=== PATIENT | male | born 2000 | race Caucasian/White ===

== ENCOUNTER → 2022-11-16 14:02 | Outpatient (CLI) | payer BC, SELFPAY ==
--- NOTE | 2022-11-16 14:26 | CA_ITS ---
APPROVED REPORT EXAM: Comprehensive 2D, Doppler, and color-flow Echocardiogram Scrubber Operator: Laurie Newby RVT Ht: 6 ft 0 in Wt: 341lbs BSA: 2.67 BP: 151/78 mmHg Indications: CP,ABN EKG,SMOKER,OBESITY 2D Dimensions LVOT 2.41 cm (M/F) 1.5-2.5 LA Volume 37.70 mL LA Volume Index 14.12 mL/m2 (M/F) 16-34 M-Mode Dimensions RVDd 2.68 cm (0.9-2.6) LA Diam 4.10 cm (1.9-4.0) LVDd 3.32 cm (3.5-5.7) Ao Diam 3.27 cm (2.0-3.7) LVDs 2.34 cm (3.5-5.7) IVSd 0.94 cm (0.6-1.1) PWd 0.47 cm (0.6-1.1) EF (Teich) 57.80% FS 29.50% EDV (Teich) 44.80 mL TAPSE 1.84 (<1.7) ESV (Teich) 18.90 mL LV Diastology E Decel Time 237.00 (160-240 msec) E/A Ratio 1.5 MED E' 6.50 (< 7 cm/sec) E'/MED E' Ratio 13.22 (>14) LAT E' 8.00 (<10 cm/sec) E/LAT E' Ratio 10.74 (>14) Aortic Valve AO Peak GR. 4.10 mmHg Mitral Valve MV E Max Cash. 86.00 (40-130 cm/s) MV A Velocity 57.00 (40-130 cm/s) E/A Ratio 1.52 MV Decel. Time 237.00 (160-240 ms) MV PHT 69.00 ms Pulmonary Valve PV Peak Velocity 85.00 (50-150 cm/s) Tricuspid Valve TR P. Velocity 238.00 cm/s RAP Estimate 10.00 mmHg RVSP 32.70 mmHg Left Ventricle Left atrium normal size left ventricle is normal size, estimated ejection fraction 55% with no regional wall motion abnormality, diastolic parameters are within normal range. Right Ventricle Right atrium and right ventricle are normal size and contractility. Aortic Valve Aortic valve is grossly normal there is no aortic stenosis aortic insufficiency. Mitral Valve Mitral valve is grossly normal, there is trace mitral regurgitation. Tricuspid Valve Tricuspid valve grossly normal, there is trace tricuspid regurgitation, tricuspid regurgitation jet velocity is inadequate for calculation of the right ventricular systolic pressure. Pulmonic Valve Pulmonic valve is poorly visualized. Great Vessels Aortic root is normal size. Inferior vena cava is normal size with normal inspiratory collapse. Pericardium No significant pericardial effusion noted. Conclusion 1. Normal left ventricular size, preserved left ventricular systolic function, estimated ejection fraction 55% with no regional wall motion abnormality. Diastolic parameters are within normal range. 2. Trace mitral and tricuspid regurgitation. 3. No significant pericardial effusion noted. 4. Inferior vena cava is normal size with normal inspiratory collapse. Electronically signed by : Farhda Hall MD 11/16/2022 15:21:33
== END ==
PROVIDERS: PCP Family Medicine; Visit Provider Physician Assistant
DX: R07.9 Chest pain, unspecified (principal); R94.31 Abnormal electrocardiogram [ECG] [EKG]
CPT/HCPCS: 93306

== ENCOUNTER 2022-11-23 06:45 | Outpatient (CLI) | payer BC, SELFPAY ==
[2022-11-23 07:07] VITALS: BMI 45.4
[2022-11-23 07:16] VITALS: BP 132/73; PULSE 82; RESP 18; TEMP 36.3; O2SAT 95
[2022-11-23 07:47] VITALS: BP 136/72; PULSE 71; RESP 17; O2SAT 100
[2022-11-23 08:09] LABS: Alanine Aminotransferase 37 U/L (12-78); Albumin Level 4.3 g/dl (3.5-5.0); Albumin/Globulin Ratio 1.6 (1.1-1.8); Alkaline Phosphatase 69 U/L (38-126); Anion Gap 12.5 mEq/L (5-15); Aspartate Amino Transferase 28 U/L (17-59); Bilirubin,Total 0.6 mg/dl (0.2-1.3); Blood Urea Nitrogen 12 mg/dl (9-20); Calcium 8.4 mg/dl (8.4-10.2); Carbon Dioxide 21 mmol/L (22.0-30.0); Chloride 108 mmol/L (98-107); Creatinine Clearance Estimated 127 mL/min (50-200); Estimated Glomerular Filt Rate 93 ml/min (>60); GFR (African American) 113 ML/MIN (>60); Globulin 2.7 g/dL (1.3-3.2); Glucose 91 mg/dl (74-100); Potassium 3.5 mmoL/L (3.5-5.1); Sodium 138 mmol/L (136-145)
[2022-11-23 08:21] VITALS: BP 145/85; PULSE 58; RESP 17; O2SAT 96
[2022-11-23 08:26] VITALS: BP 125/85; PULSE 55; RESP 16; O2SAT 97
[2022-11-23 08:35] VITALS: BP 116/74; PULSE 61; RESP 17; O2SAT 99
[2022-11-23 08:45] VITALS: BP 115/77; PULSE 59; RESP 17; O2SAT 99
== END 2022-11-23 08:50 | disposition home or self-care (01) ==
PROVIDERS: PCP Family Medicine; Visit Provider Physician Assistant
DX: R07.9 Chest pain, unspecified (principal); R94.31 Abnormal electrocardiogram [ECG] [EKG]
CPT/HCPCS: 75574; 80053; Q9967

== ENCOUNTER → 2023-07-15 12:33 | Outpatient (CLI) | payer BC, SELFPAY ==
--- NOTE | 2023-07-15 12:40 | US_ITS ---
FINAL REPORT TECHNIQUE: Limited ultrasound imaging of the neck soft tissues was obtained. CLINICAL HISTORY: posss salivary gland obstruction FINDINGS: The right submandibular and right parotid gland are homogeneous without mass identified. There is no hyperemia. The left submandibular and left parotid gland are homogeneous without mass identified. There is no hyperemia. In the left neck, separate from the salivary gland are small, benign-appearing lymph nodes which are normal in size. IMPRESSION: Unremarkable exam. Reviewed, Interpreted and Dictated by Dalila Russell MD Transcribed by Maegan Bermudez Authenticated and [facility]
== END ==
PROVIDERS: PCP Family Medicine; Visit Provider Nurse Practitioner
DX: K11.8 Other diseases of salivary glands (principal)
CPT/HCPCS: 76536

== ENCOUNTER 2024-05-05 08:07 | Outpatient (POV) | payer BC, SELFPAY | END 2024-05-05 23:59 | disposition home or self-care (01) | LOC: SC 08:07 | PROVIDERS: Visit Provider Specialist/Technologist | DX: Z00.00 Encounter for general adult medical examination without abnormal findings (principal) ==

== ENCOUNTER 2025-08-16 13:30 | Outpatient (CLI) | payer BC, SELFPAY ==
[2025-08-16 14:30] LABS: Hematocrit 45.6 % (42.0-52.0); Hemoglobin 15.4 g/dL (14.1-18.0); Immature Granulocytes % 0.2 %; Mean Corpuscular HGB Conc 33.8 g/dL (31.8-35.4); Mean Corpuscular Hemoglobin 29.9 pg (27.0-31.2); Mean Corpuscular Volume 88.5 fl (80-94); Nucleated Red Blood Cells % 0 %; Platelet Count 336 K/mm3 (142-424); Red Blood Count 5.15 M/mm3 (4.60-6.20); Red Cell Distribution Width-SD 42.1 fL; White Blood Count 8.6 K/mm3 (4.8-10.8)
[2025-08-16 14:52] LABS: Alanine Aminotransferase 54 U/L (12-78); Albumin Level 4.5 g/dl (3.5-5.0); Alkaline Phosphatase 61 U/L (38-126); Anion Gap 17.3 mEq/L (5-15); Aspartate Amino Transferase 34 U/L (17-59); Bilirubin,Direct 0.2 mg/dl (0.0-0.4); Bilirubin,Indirect 0.3 mg/dL (0.0-0.9); Bilirubin,Total 0.5 mg/dl (0.2-1.3); Bilirubin,Unconjugated 0.3 mg/dL (0.0-1.1); Blood Urea Nitrogen 8 mg/dl (9-20); Calcium 9.6 mg/dl (8.4-10.2); Carbon Dioxide 21 mmol/L (22.0-30.0); Chloride 109 mmol/L (98-107); Cholesterol 155 mg/dl (140-200); Creatinine,Serum 1.00 mg/dl (0.66-1.25); Estimated Glomerular Filt Rate 91 ml/min (>60); GFR (African American) 110 ML/MIN (>60); Glucose 84 mg/dl (74-100); HDL Cholesterol 36 mg/dl (40-60); Magnesium 1.9 mg/dl (1.6-2.3); Potassium 4.3 mmoL/L (3.5-5.1); Sodium 143 mmol/L (136-145); Total Protein,Serum 7.3 g/dl (6.3-8.2); Triglycerides 187 mg/dl (30-150)
[2025-08-16 15:09] LABS: Free T4 (Free Thyroxine) 0.89 ng/dl (0.78-2.19)
[2025-08-16 15:22] LABS: Thyroid Stimulating Hormone 4.29 uIU/mL (0.465-4.68)
== END 2025-08-16 23:59 | disposition home or self-care (01) ==
LOC: LAB 13:31
PROVIDERS: PCP Family Medicine; Visit Provider Nurse Practitioner
DX: R94.31 Abnormal electrocardiogram [ECG] [EKG] (principal); R00.2 Palpitations; I34.0 Nonrheumatic mitral (valve) insufficiency; I07.1 Rheumatic tricuspid insufficiency; I10 Essential (primary) hypertension
CPT/HCPCS: 36415; 80048; 80061; 80076; 83735; 84439; 84443; 85025; 93270

== ENCOUNTER 2025-08-26 12:59 | Outpatient (CLI) | payer BC, SELFPAY ==
--- NOTE | 2025-08-26 13:00 | CA_ITS ---
APPROVED REPORT EXAM: Comprehensive 2D, Doppler, and color-flow Echocardiogram [employer] Control Systems Integrator: Alanis Carcamo RDCS Ht: 6 ft 0 in Wt: 345lbs BSA: 2.69 BP: 153/92 mmHg Indications: Palpitations M-Mode Dimensions RVDd 2.48 cm (0.9-2.6) LA Diam 4.24 cm (1.9-4.0) LVDd 6.44 cm (3.5-5.7) LVDs 4.80 cm (3.5-5.7) IVSd 0.70 cm (0.6-1.1) PWd 0.91 cm (0.6-1.1) EF (Teich) 49.20% FS 25.50% EDV (Teich) 211.50 mL ESV (Teich) 107.50 mL LV Diastology E Decel Time 213 (160-240 msec) E/A Ratio 1.3 Aortic Valve ALEX Index 1.47 cm2/m2 AoV Peak Cash. 124.0 (50-130 cm/s) AO Peak GR. 6.10 mmHg AO Mean GR. 3.10 (<5 mmHg) AO VTI 21.5 (18-25 cm) ALEX (VTI) 4.05 (2.5-4.5 cm2) Mitral Valve MV E Max Cash. 79.0 (40-130 cm/s) MV A Velocity 63.0 (40-130 cm/s) E/A Ratio 1.27 MV PHT 62.0 ms Left Ventricle The left ventricle is normal size. Left ventricular systolic function is normal. The left ventricular ejection fraction is within the normal range. There is normal left ventricular wall thickness. There is normal LV segmental wall motion. The left ventricular diastolic function is normal. LVEF is 55% Right Ventricle The right ventricle is normal size. The right ventricular systolic function is normal. Atria The left atrium size is normal. The right atrium size is normal. There is no color Doppler evidence of interatrial shunt. Aortic Valve The aortic valve opens well. There is no hemodynamically significant aortic valvular stenosis. No aortic regurgitation is present. Mitral Valve The mitral valve is normal in structure. No evidence of mitral valve stenosis. Trace mitral regurgitation is present. Tricuspid Valve The tricuspid valve leaflets are thin and pliable. Trace tricuspid regurgitation. There is insufficient TR jet to estimate RVSP. Pulmonic Valve The pulmonary valve is grossly normal in structure. Trace pulmonic valve regurgitation is present. Great Vessels The aortic root is normal in size. IVC is normal in size and collapses >50% with inspiration. Pericardium There is no pericardial effusion. Other Information Study Quality: Fair Conclusion Normal biventricular systolic function. No significant valvular stenosis or regurgitation. Electronically signed by : Gina Greer MD 09/01/2025 19:55:34
== END 2025-08-26 23:59 | disposition home or self-care (01) ==
LOC: RT 13:00
PROVIDERS: PCP Family Medicine; Visit Provider Nurse Practitioner
DX: I34.0 Nonrheumatic mitral (valve) insufficiency (principal); I07.1 Rheumatic tricuspid insufficiency
CPT/HCPCS: 93306